=== PATIENT | male | born 1995 | race Caucasian/White ===

== ENCOUNTER 2018-04-30 14:38 | Observation (INO) | payer MEDICAID ==
[~2018-04-30] VITALS: Ht 185.4 cm; Wt 113.6 kg
[2018-04-30] MEDS ORDERED: ASPIRIN81 MG PO (14:48)
[2018-04-30 15:18] LABS: HEMATOCRIT 47.3 % (42.0-54.0); HEMOGLOBIN 16.2 g/dL (13.5-17.5); MCH 30.2 pg (26.0-34.0); MCHC 34.2 g/dL (31.0-37.0); MCV 88.1 fL (80.0-100.0); MEAN PLATELET VOLUME 10.5 fL (7.4-10.4); PLATELET COUNT 282 10x3/uL (130-400); RBC 5.37 10x6/uL (4.20-6.10); WBC 27.5 10x3/uL (4.8-10.8)
[2018-04-30 15:46] LABS: EOSINOPHILS 1 % (0-7); LYMPHOCYTES 8 % (15-50); MONOCYTES 7 % (2-11); NEUTROPHILS 75 % (40-80); PLATELET ESTIMATE NORMAL
[2018-04-30 16:11] VITALS: BP 121/67
[2018-04-30 16:32] VITALS: BP 115/69
[2018-04-30 17:18] VITALS: BP 109/58
[2018-04-30 19:06] LABS: ALBUMIN 3.9 g/dL (3.4-5.0); ALKALINE PHOSPHATASE 48 U/L (46-116); ALT (SGPT) 94 U/L (10-68); BILIRUBIN - TOTAL 0.67 mg/dL (0.2-1.3); CALC OSMOLALITY 287 mosm/kg (275-300); CALCIUM 9.6 mg/dL (8.5-10.1); CARBON DIOXIDE 27.5 mmol/L (21.0-32.0); CHLORIDE - SERUM 108 mmol/L (98-107); CREATININE - SERUM 1.2 mg/dL (0.6-1.3); GLUCOSE 106 mg/dL (74-106); POTASSIUM - SERUM 3.7 mmol/L (3.5-5.1); PROTEIN - SERUM 7.4 g/dL (6.4-8.2); SODIUM 145 mmol/L (136-145); UREA NITROGEN 11 mg/dL (7-18); eGFR NON AFRICAN AMERICAN 81 mL/min (90-120)
[2018-04-30 19:35] LABS: CREATINE KINASE 1527 UL (21-232); TROPONIN-I < 0.017 ng/mL (0.000-0.060)
[2018-04-30 19:36] LABS: CKMB 48.5 U/L (0.0-3.6)
[2018-04-30 20:46] VITALS: BP 106/61
[2018-04-30 22:42] VITALS: BP 106/61; BMI 33.0
[2018-05-01 05:03] VITALS: BP 138/59
[2018-05-01 05:24] LABS: BASOPHILS 0.2 % (0-2); EOSINOPHILS 2.9 % (0-7); HEMATOCRIT 40.6 % (42.0-54.0); HEMOGLOBIN 13.5 g/dL (13.5-17.5); IMMATURE GRANULOCYTES 0.3 % (0-5); LYMPHOCYTES 16.6 % (15-50); MCH 29.3 pg (26.0-34.0); MCHC 33.3 g/dL (31.0-37.0); MCV 88.3 fL (80.0-100.0); MEAN PLATELET VOLUME 10.4 fL (7.4-10.4); MONOCYTES 11.4 % (2-11); NEUTROPHILS 68.6 % (40-80); PLATELET COUNT 242 10x3/uL (130-400); RDW 13.4 % (11.5-14.5)
[2018-05-01 05:32] LABS: WBC 12.2 10x3/uL (4.8-10.8)
[2018-05-01 08:41] VITALS: BP 120/61
[2018-05-01 11:17] VITALS: Ht 185.4 cm; Wt 113.6 kg
[2018-05-01 13:04] VITALS: BP 119/65
[2018-05-01 16:39] VITALS: BP 126/76
[2018-05-01 20:43] VITALS: BP 111/56
[2018-05-02 04:22] VITALS: BP 104/68
[2018-05-02] MEDS ORDERED: NORCO 7.5/325 T1 TA1 PO (08:00)
[2018-05-02 08:29] VITALS: BP 125/86
== END 2018-05-02 14:02 | disposition home or self-care (01) ==
LOC: D.ER 14:38 → D.MS 18:48 → D.EDHOLD 18:48 → OBSVTIME 18:49 → D.MS 18:54
PROVIDERS: Emergency Medicine
DX: S02.0XXA Fracture of vault of skull, initial encounter for closed fracture (principal); S32.019A Unspecified fracture of first lumbar vertebra, initial encounter for closed fracture; V47.5XXA Car driver injured in collision with fixed or stationary object in traffic accident, initial encounter; R07.9 Chest pain, unspecified